=== PATIENT | male | born 1980 | race Caucasian/White ===

== ENCOUNTER 2020-07-02 12:59 | Emergency (ER) | payer MEDICAID ==
[~2020-07-02] VITALS: Ht 170.2 cm; Wt 75.0 kg
[2020-07-02] MEDS ORDERED: BACITRACIN 0.9 GM PACKET OINTMENT TP ONE (13:45)
[2020-07-02] MEDS ORDERED: ACETAMINOPHEN 500 MG TABLET PO ONE (13:45)
[2020-07-02] MEDS ORDERED: LIDOCAINE 1% 10 ML VIAL PERC ONE (13:45)
[2020-07-02 14:31] VITALS: BP 124/71
== END 2020-07-02 14:32 | disposition home or self-care (01) ==
LOC: EMS 12:59
DX: S61.512A Laceration without foreign body of left wrist, initial encounter (principal); W45.8XXA Other foreign body or object entering through skin, initial encounter; Y93.89 Activity, other specified; Y92.89 Other specified places as the place of occurrence of the external cause; Y99.8 Other external cause status
CPT/HCPCS: 12002; 99283; J3490

== ENCOUNTER 2020-07-15 11:40 | Emergency (ER) | payer MEDICAID ==
[~2020-07-15] VITALS: Ht 170.2 cm; Wt 75.0 kg
[2020-07-15 11:43] VITALS: BP 109/70
== END 2020-07-15 12:36 | disposition home or self-care (01) ==
LOC: EMS 11:42
DX: S61.512D Laceration without foreign body of left wrist, subsequent encounter (principal); X58.XXXD Exposure to other specified factors, subsequent encounter
CPT/HCPCS: 99281; Z7502